=== PATIENT | female | born 1985 | race Caucasian/White ===

== ENCOUNTER 2017-12-29 10:45 | Emergency (ER) | payer OTHER | END 2017-12-29 11:33 | disposition home or self-care (01) | LOC: E/R 10:45 | DX: J32.9 Chronic sinusitis, unspecified (principal) | CPT/HCPCS: 99284; Z7502 ==

== ENCOUNTER 2018-01-18 22:02 | Inpatient (IN) | payer OTHER ==
[2018-01-18 22:35] LABS: ADD MAN DIFF? NO
[2018-01-18 22:38] LABS: WHITE BLOOD COUNT 9.7 10^3/ul (4.8-10.8)
[2018-01-18 22:38] LABS: BASOPHILS % 0.2 % (0.0-2.0); EOSINOPHILS # 0.1 10^3/ul (0.0-0.5); EOSINOPHILS % 0.5 % (0.0-7.0); HEMATOCRIT 39.7 % (37.0-47.0); HEMOGLOBIN 13.4 g/dl (12.0-16.0); LYMPHOCYTES # 0.7 10^3/ul (0.8-2.9); LYMPHOCYTES % 7.2 % (15.0-51.0); MEAN CORPUSCULAR HEMOGLOBIN 28.8 pg (29.0-33.0); MEAN CORPUSCULAR HGB CONC 33.8 g/dl (32.0-37.0); MEAN CORPUSCULAR VOLUME 85.4 fl (82.0-101.0); MEAN PLATELET VOLUME 10.4 fl (7.4-10.4); MONOCYTE # 0.6 10^3/ul (0.3-0.9); MONOCYTES % 6.6 % (0.0-11.0); NEUTROPHIL # 8.2 10^3/ul (1.6-7.5); NEUTROPHILS % 85.2 % (39.0-77.0); PLATELET COUNT 278 10^3/UL (140-415); RED BLOOD COUNT 4.65 10^6/ul (4.20-5.40); RED CELL DISTRIBUTION WIDTH 13.9 % (11.5-14.5)
[2018-01-18 22:53] LABS: INR 0.99; PROTIME 13.2 Sec (11.9-14.9)
[2018-01-18 22:54] LABS: PARTIAL THROMBOPLASTIN TIME 29.2 Sec (25.0-35.0)
[2018-01-18 22:56] LABS: ALANINE AMINOTRANSFERASE 50 IU/L (13-69); ALBUMIN/GLOBULIN RATIO 1.28; ALKALINE PHOSPHATASE 125 IU/L (42-121); ANION GAP 18 (8-16); ASPARTATE AMINO TRANSFERASE 42 IU/L (15-46); BILIRUBIN,INDIRECT 0.1 mg/dl (0-1.1); BILIRUBIN,TOTAL 0.1 mg/dl (0.2-1.3); BLOOD UREA NITROGEN 7 mg/dl (7-20); CALCIUM 9.7 mg/dl (8.4-10.2); CARBON DIOXIDE 23 mmol/L (21-31); CHLORIDE 104 mmol/L (97-110); CREATININE 0.61 mg/dl (0.44-1.00); GLUCOSE 121 mg/dl (70-220); POTASSIUM 3.6 mmol/L (3.5-5.1); SODIUM 141 mmol/L (135-144); TOTAL PROTEIN 8.9 g/dl (6.1-8.1)
[2018-01-18 22:57] LABS: CHOLESTEROL 160 mg/dl (100-200); LACTIC ACID 1.8 mmol/L (0.5-2.0)
[2018-01-18 22:57] LABS: CHOL/HDL RATIO 4.2 RATIO; HDL CHOLESTEROL 38 mg/dl (34-82); LDL CHOLESTEROL,CALCULATED 81 mg/dl; TRIGLYCERIDES 203 mg/dl (0-149)
[2018-01-18 23:00] LABS: HEMOGLOBIN A1C 5.4 % (0-5.9)
[2018-01-18 23:08] LABS: ETHANOL < 10.0 mg/dl
[2018-01-18 23:10] LABS: TROPONIN-I < 0.012 ng/ml (0.00-0.12)
[2018-01-18] MEDS: SOD CHLORIDE 0.9% 100 ML (23:23)
[2018-01-18] MEDS: IOHEXOL 100 ML (23:24)
[2018-01-18] MEDS: SOD CHLORIDE 0.9% 1,920 ML IV (23:24)
[2018-01-18] MEDS: ACETAMINOPHEN 650 MG SUPP PR (23:24)
[2018-01-18] MEDS: ONDANSETRON 4 MG INJ IV (23:40)
[2018-01-18] MEDS: morphine 4 MG/ML VIAL IV (23:40)
[2018-01-18] MEDS ORDERED: ONDANSETRON 4 MG INJ (23:51)
[2018-01-19] MEDS: HYDROmorphONE 0.5 MG/0.5 ML SYG IV (00:17)
[2018-01-19] MEDS ORDERED: ASPIRIN 300 MG SUPP PR (01:00)
[2018-01-19 01:17] LABS: LACTIC ACID 1.3 mmol/L (0.5-2.0)
[2018-01-19] MEDS: VANCOMYCIN 1 GM (PMX) 250 ML IVPB (01:45)
[2018-01-19] MEDS: DEXAMETHASONE 10 MG/ML 1 ML INJ IV (01:45)
[2018-01-19] MEDS: CEFTRIAXONE 2 GM/50 ML (PMX) 50 ML IVPB ×3 (02:27→22:26)
[2018-01-19] MEDS: ACYCLOVIR 600 MG in DEXTROSE 5% 100 ML IVPB (02:27)
[2018-01-19] MEDS ORDERED: VANCOMYCIN IV PER PHARMACY XX (02:30)
[2018-01-19] MEDS: ASPIRIN 325 MG TAB PO (03:11)
[2018-01-19 04:17] LABS: URINE PH (Dip) POC 6.5 (5.0-8.5)
[2018-01-19 04:17] LABS: URINE BLOOD (Dip) POC Trace-intact (NEGATIVE); URINE GLUCOSE (Dip) POC Negative (NEGATIVE); URINE KETONES (Dip) POC Negative (NEGATIVE); URINE LEUKOCYTE EST (Dip) POC Negative (NEGATIVE); URINE NITRITE (Dip) POC Negative (NEGATIVE); URINE TOTAL PROTEIN POC Negative (NEGATIVE)
[2018-01-19 04:58] LABS: ADD UMIC YES; UR ASCORBIC ACID NEGATIVE (NEGATIVE); UR BILIRUBIN (Dip) NEGATIVE (NEGATIVE); UR BLOOD (Dip) 1+ mg/dL (NEGATIVE); UR CLARITY CLEAR (CLEAR); UR COLOR STRAW (YELLOW); UR GLUCOSE (Dip) NEGATIVE (NEGATIVE); UR KETONES (Dip) NEGATIVE (NEGATIVE); UR LEUKOCYTE ESTERASE (Dip) NEGATIVE Leu/ul (NEGATIVE); UR NITRITE (Dip) NEGATIVE (NEGATIVE); UR RBC 0 /HPF (0-5); UR TOTAL PROTEIN (Dip) NEGATIVE (NEGATIVE); UR UROBILINOGEN (Dip) NEGATIVE (NEGATIVE); UR WBC 0 /HPF (0-5)
[2018-01-19 05:12] LABS: AMPHETAMINE/METHAMPHETAMINE Negative (NEGATIVE); BARBITURATES Negative (NEGATIVE); BENZODIAZEPINES Negative (NEGATIVE); CANNABINOIDS Negative (NEGATIVE); COCAINE Negative (NEGATIVE); OPIATES Positive (NEGATIVE)
[2018-01-19 05:42] LABS: LACTIC ACID 1.4 mmol/L (0.5-2.0)
[2018-01-19 05:53] LABS: C-REACTIVE PROTEIN 4.4 mg/dl (0.0-0.9)
[2018-01-19 06:24] LABS: HIV 1&2 ANTIBODY NEGATIVE (NEGATIVE)
[2018-01-19] MEDS: SOD CHLORIDE 0.9% 500 ML IV (09:44)
[2018-01-19] MEDS: PENICILLIN G BENZ 1.2 MIL UNIT SYG IM (09:44)
[2018-01-19] MEDS: VANCOMYCIN 1 GM 250 ML IVPB (10:02)
[2018-01-19] MEDS: ACYCLOVIR 500 MG in SOD CHLORIDE 0.9% 100 ML IVPB (15:12)
[2018-01-19 15:27] LABS: CSF RBC 0 /uL (0-0)
[2018-01-19 15:32] LABS: CSF COLOR COLORLESS
[2018-01-19 15:32] LABS: CSF CLARITY CLEAR; CSF#TUBE COUNT TUBE#4; CSF#TUBES REC'D 4
[2018-01-19 15:33] LABS: CSF WBC 4 /cmm (0-10)
[2018-01-19 15:52] LABS: GLUCOSE,CSF 95 mg/dl (50-80)
[2018-01-19 15:52] LABS: TOTAL PROTEIN,CSF 26 mg/dl (12-60)
[2018-01-19] MEDS: DIPHENHYDRAMINE 50 MG CAP PO (22:00)
[2018-01-19] MEDS ORDERED: VITAMIN A & D 5 GM OINT PACKET TOP (22:23)
[2018-01-19] MEDS: LORAZEPAM 2 MG INJ IV (23:30)
[2018-01-20] MEDS: DIPHENHYDRAMINE 50 MG CAP PO ×2 (08:40→20:26)
[2018-01-20] MEDS: LORAZEPAM 1 MG TAB PO (09:39)
[2018-01-20] MEDS: CEFTRIAXONE 2 GM/50 ML (PMX) 50 ML IVPB ×2 (12:47→20:27)
[2018-01-20 19:36] LABS: EBV VIRAL CAPSID AG AB (IGM) <36.00 U/mL
[2018-01-21] MEDS: LORAZEPAM 1 MG TAB PO (01:44)
[2018-01-21] MEDS: CEFTRIAXONE 2 GM/50 ML (PMX) 50 ML IVPB (10:24)
== END 2018-01-21 15:35 | disposition home or self-care (01) | DRG 153 ==
LOC: TEL 01-19 18:59 → E/R 22:02 → MS3 01-19 01:05 → TEL 01-19 01:05
PROVIDERS: Family Medicine
PROC: 009U3ZX Drainage of Spinal Canal, Percutaneous Approach, Diagnostic (ICD-10-PCS; principal; 2018-01-19)
PROC: B01BZZZ Fluoroscopy of Spinal Cord (ICD-10-PCS; 2018-01-19)
DX: J03.90 Acute tonsillitis, unspecified (principal); F43.10 Post-traumatic stress disorder, unspecified; J02.0 Streptococcal pharyngitis
CPT/HCPCS: 36415; 70450; 70496; 70498; 70553; 71045; 72156; 80053; 80061; 80306; 80307; 81001; 81003; 82945; 82962; 83036; 83605; 84157; 84484; 84703; 85025; 85610; 85651; 85730; 86140; 86403; 86664; 86703; 86738; 87040; 87070; 87086; 87400; 87496; 87529; 87880; 89051; 92610; 93005; 96361; 96365; 96366; 96368; 96372; 96375; 96376; 97164; 99291-25

== ENCOUNTER 2018-10-11 22:07 | Emergency (ER) | payer OTHER | END 2018-10-11 23:41 | disposition home or self-care (01) | LOC: FTE 23:41 | DX: H66.92 Otitis media, unspecified, left ear (principal); H60.92 Unspecified otitis externa, left ear | CPT/HCPCS: 99283 ==

== ENCOUNTER 2019-03-02 18:34 | Emergency (ER) | payer OTHER ==
[2019-03-02] MEDS: KETOROLAC 60 MG INJ IM (19:26)
[2019-03-02] MEDS: AMOXICILLIN 500 MG CAP PO (19:38)
[2019-03-02] MEDS: DEXAMETHASONE 4 MG TAB PO (19:39)
== END 2019-03-02 20:05 | disposition home or self-care (01) ==
LOC: FTE 18:34
DX: J02.9 Acute pharyngitis, unspecified (principal); Z86.73 Personal history of transient ischemic attack (TIA), and cerebral infarction without residual deficits
CPT/HCPCS: 96372; 99284-25